=== PATIENT | male | born 1975 | race Caucasian/White ===

== ENCOUNTER 2016-10-28 15:48 | Emergency (ER) | payer OTHER ==
[~2016-10-28 15:48] MED LIST: FLEXERIL10 MG PO; HYDROCODON-ACE1 EAC9 PO; LORTAB 5/500 TA1 TA2 PO; ORUDIS75 M1 PO; ROBAXIN500 MG PO
== END 2016-10-28 17:05 | disposition home or self-care (01) ==
LOC: CED 15:48
DX: F11.10 Opioid abuse, uncomplicated (principal); F17.200 Nicotine dependence, unspecified, uncomplicated
CPT/HCPCS: 99282